=== PATIENT | male | born 1960 | race Caucasian/White ===

== ENCOUNTER 2023-09-28 14:18 | Emergency (ER) | payer OTHER ==
[~2023-09-28] VITALS: Ht 172.7 cm; Wt 89.8 kg
[2023-09-28 18:00] VITALS: O2SAT 97
[2023-09-28] MEDS ORDERED: ACET1TAB23 PO (18:00)
== END 2023-09-28 18:18 | disposition home or self-care (01) ==
LOC: ER 14:28
DX: S93.692A Other sprain of left foot, initial encounter (principal); Z79.899 Other long term (current) drug therapy; X50.1XXA Overexertion from prolonged static or awkward postures, initial encounter; Y93.89 Activity, other specified; Y92.89 Other specified places as the place of occurrence of the external cause; Y99.8 Other external cause status
CPT/HCPCS: 73630; A4606; A4663